=== PATIENT | male | born 1950 | race African-American/Black ===

== ENCOUNTER 2023-05-27 13:00 | Inpatient (IN) | payer MEDICAID, MEDICARE ==
[2023-05-27 14:16] LABS: #Eosinphils 0.1 thou/uL (0.0-0.7); #Monocytes 0.8 thou/uL (0.11-0.59); #Neutrophils 10.4 thou/uL (1.40-6.50); %Basophils 0.2 % (0.0-1.0); %Eosinophils 0.8 % (0.0-10.0); %Lymphocytes 7.1 % (21.0-51.0); %Monocytes 6.6 % (0.0-10.0); Hematocrit 15.6 % (42.0-52.0); Hemoglobin 4.6 g/dL (14.0-18.0); Mean Corpuscular HGB CONC 29.5 g/dL (32.0-36.0); Mean Corpuscular Volume 88.1 fl (78.0-98.0); Mean Platelet Volume 9.5 fL (7.4-10.4); Platelet Count 248 10x3/uL (130-400); RBC Distribution Width 17.8 % (11.5-14.5); Red Blood Cell (RBC) Count 1.77 mill/uL (4.70-6.10); White Blood Cell (WBC) Count 12.3 10x3/uL (4.8-10.8)
[2023-05-27 14:39] LABS: INR-International Normal Ratio 1.1; PTT 28.1 sec (22.9-36.1); Prothrombin Time 14.5 sec (12.0-14.7)
[2023-05-27 14:41] LABS: ALT (SGPT) 8 U/L (8-55); AST (SGOT) 14 U/L (5-34); Albumin 3.2 g/dL (3.4-4.8); Alkaline Phosphatase 55 U/L (40-110); Anion Gap 13 mmol/L (10-20); BUN (Urea Nitrogen) 63 mg/dL (8.4-25.7); Bilirubin, Total 0.4 mg/dL (0.2-1.2); Calc. Creatinine Clearance 0 mL/min (70-130); Calcium 8.1 mg/dL (7.8-10.44); Carbon Dioxide 21 mmol/L (23-31); Chloride 112 mmol/L (98-107); Estimated GFR 20; Globulin 2.7 g/dL (2.4-3.5); Glucose 110 mg/dL (83-110); Potassium 4.7 mmol/L (3.5-5.1); Protein, Total 5.9 g/dL (5.8-8.1); Sodium 141 mmol/L (136-145)
[2023-05-27] MEDS ORDERED: Pantoprazole 40 MG VIAL ONE (16:00)
[2023-05-27 16:26] LABS: Bacteria/HPF None Seen HPF (None Seen); Bilirubin Negative (Negative); Blood, Urine Negative (Negative); CAUTI Indications for Culture Pelvic or flank pain; Clarity Clear (Clear); Glucose, Urine (Dipstick) Normal (Negative); Ketone, Urine Negative (Negative); Leukocyte Negative Leu/uL (Negative); Nitrite Negative (Negative); Protein, Urine (Dipstick) 70 mg/dL (Neg-Trace); RBC/HPF None Seen HPF (0-3); Specific Gravity, Urine 1.014 (1.002-1.036); Squamous Epithelial None Seen HPF (0-3); Urobilinogen Normal mg/dL (Less than 2); WBC/HPF 0-3 HPF (0-3); pH, Urine 5.5 (5.0-9.0)
[2023-05-27 16:43] LABS: Urine Culture Reflex No No
[2023-05-27] MEDS ORDERED: Ondansetron ODT 4 MG TAB SL PRN (17:30)
[2023-05-27] MEDS ORDERED: Acetaminophen 325 MG TAB PO PRN ×2 (17:30→18:29)
[2023-05-27] MEDS ORDERED: Ondansetron PF 4 MG/2 ML Vial IVP PRN (17:30)
[2023-05-27] MEDS: Pantoprazole 40 MG VIAL IVP SCH (18:23)
[2023-05-27] MEDS ORDERED: Ondansetron ODT 4 MG TAB PO PRN (18:29)
[2023-05-27] MEDS ORDERED: Acetaminophen 650 MG Suppository PR PRN (18:29)
[2023-05-27] MEDS ORDERED: hydrALAZINE 20 MG/ML VIAL SLOW IVP SCH (18:30)
[2023-05-27] MEDS ORDERED: Amlodipine 10 MG TAB PO SCH (18:30)
[2023-05-27] MEDS ORDERED: hydrALAZINE 20 MG/ML VIAL SLOW IVP PRN (18:31)
[2023-05-27] MEDS ORDERED: Furosemide 40 MG (4 mL) VIAL SLOW IVP SCH (22:15)
[2023-05-27] MEDS: Sodium Chloride 0.9% 1,000 ML IV SCH ×2 (23:47→23:50)
[2023-05-28 00:02] LABS: Lactic Acid 0.8 mmol/L (0.5-2.2)
[2023-05-28 00:05] LABS: ALT (SGPT) 8 U/L (8-55); AST (SGOT) 16 U/L (5-34); Albumin 3.1 g/dL (3.4-4.8); Alkaline Phosphatase 52 U/L (40-110); Anion Gap 17 mmol/L (10-20); BUN (Urea Nitrogen) 65 mg/dL (8.4-25.7); Bilirubin, Total 0.7 mg/dL (0.2-1.2); Calc. Creatinine Clearance 34 mL/min (70-130); Carbon Dioxide 17 mmol/L (23-31); Chloride 114 mmol/L (98-107); Estimated GFR 20; Globulin 2.6 g/dL (2.4-3.5); Glucose 152 mg/dL (83-110); Potassium 4.8 mmol/L (3.5-5.1); Protein, Total 5.7 g/dL (5.8-8.1); Sodium 143 mmol/L (136-145)
[2023-05-28] MEDS: Labetalol HCl 100 MG/20 ML VIAL SLOW IVP PRN ×4 (00:25→22:14)
[2023-05-28] MEDS: hydrALAZINE 20 MG/ML VIAL SLOW IVP PRN ×3 (03:16→15:51)
[2023-05-28 04:01] LABS: #Neutrophils 16.1 thou/uL (1.40-6.50); %Basophils 0.1 % (0.0-1.0); %Lymphocytes 5.3 % (21.0-51.0); %Monocytes 5.5 % (0.0-10.0); %Neutrophils 88.7 % (42.0-75.0); Hematocrit 19.1 % (42.0-52.0); Hemoglobin 6.1 g/dL (14.0-18.0); Mean Corpuscular HGB CONC 31.9 g/dL (32.0-36.0); Mean Corpuscular Hemoglobin 27.5 pg (27.0-31.0); Mean Platelet Volume 10.7 fL (7.4-10.4); Platelet Count 284 10x3/uL (130-400); RBC Distribution Width 16.5 % (11.5-14.5); Red Blood Cell (RBC) Count 2.22 mill/uL (4.70-6.10); White Blood Cell (WBC) Count 18.1 10x3/uL (4.8-10.8)
[2023-05-28 04:24] LABS: ALT (SGPT) 9 U/L (8-55); AST (SGOT) 14 U/L (5-34); Albumin 3.3 g/dL (3.4-4.8); Alkaline Phosphatase 54 U/L (40-110); Anion Gap 17 mmol/L (10-20); BUN (Urea Nitrogen) 70 mg/dL (8.4-25.7); Bilirubin, Total 0.7 mg/dL (0.2-1.2); Calc. Creatinine Clearance 34 mL/min (70-130); Calcium 8.2 mg/dL (7.8-10.44); Carbon Dioxide 19 mmol/L (23-31); Chloride 114 mmol/L (98-107); Estimated GFR 20; Globulin 2.8 g/dL (2.4-3.5); Glucose 140 mg/dL (83-110); Potassium 4.5 mmol/L (3.5-5.1); Protein, Total 6.1 g/dL (5.8-8.1); Sodium 145 mmol/L (136-145)
[2023-05-28] MEDS: Sodium Chloride 0.9% 1,000 ML IV SCH ×3 (04:47→23:56)
[2023-05-28] MEDS: Pantoprazole 40 MG VIAL IVP SCH (09:04)
[2023-05-28] MEDS ORDERED: GoLYTELY 4,000 ml Bottle PO SCH (10:30)
[2023-05-28 11:21] LABS: Hematocrit 20.8 % (42.0-52.0); Hemoglobin 6.8 g/dL (14.0-18.0)
[2023-05-28 11:43] LABS: Glucose 132 mg/dL (83-110)
[2023-05-28] MEDS ORDERED: Etomidate 40 MG (20 mL) VIAL ONE (16:49)
[2023-05-28] MEDS ORDERED: Rocuronium Bromide 10 MG/ML (10ML VIAL) ONE ×2 (16:49→17:07)
[2023-05-28] MEDS ORDERED: Succinylcholine 200 MG/10 ml SYRINGE FS ONE ×2 (16:49→17:07)
[2023-05-28] MEDS ORDERED: Lidocaine 1% PF 5 ML VIAL ONE ×2 (16:49→17:07)
[2023-05-28] MEDS ORDERED: PHENYLEPHRINE-NS 100 MCG/ML 10 ML SYRINGE ONE ×2 (17:07→17:39)
[2023-05-28] MEDS ORDERED: Ondansetron PF 4 MG/2 ML Vial ONE ×2 (17:07→18:59)
[2023-05-28] MEDS ORDERED: SUGAMMADEX SODIUM 200 MG/2 ML VIAL ONE (18:59)
[2023-05-28 19:50] LABS: Hematocrit 25.4 % (42.0-52.0); Hemoglobin 8.5 g/dL (14.0-18.0)
[2023-05-29] MEDS: hydrALAZINE 20 MG/ML VIAL SLOW IVP PRN ×2 (00:17→22:45)
[2023-05-29] MEDS: Sodium Chloride 0.9% 1,000 ML IV SCH ×4 (03:18→21:07)
[2023-05-29 05:07] LABS: #Basophils 0.1 thou/uL (0.0-0.2); #Eosinphils 0.2 thou/uL (0.0-0.7); #Monocytes 1.1 thou/uL (0.11-0.59); #Neutrophils 9.7 thou/uL (1.40-6.50); %Basophils 0.4 % (0.0-1.0); %Eosinophils 1.7 % (0.0-10.0); %Lymphocytes 11.8 % (21.0-51.0); %Neutrophils 76.4 % (42.0-75.0); Hematocrit 22.7 % (42.0-52.0); Hemoglobin 7.6 g/dL (14.0-18.0); Mean Corpuscular HGB CONC 33.5 g/dL (32.0-36.0); Mean Corpuscular Hemoglobin 29.2 pg (27.0-31.0); Mean Corpuscular Volume 87.3 fl (78.0-98.0); Mean Platelet Volume 10.1 fL (7.4-10.4); Platelet Count 228 10x3/uL (130-400); RBC Distribution Width 17.1 % (11.5-14.5); White Blood Cell (WBC) Count 12.7 10x3/uL (4.8-10.8)
[2023-05-29 05:08] LABS: Hematocrit 22.8 % (42.0-52.0); Hemoglobin 7.5 g/dL (14.0-18.0)
[2023-05-29] MEDS: Labetalol HCl 100 MG/20 ML VIAL SLOW IVP PRN ×2 (05:23→21:07)
[2023-05-29 05:36] LABS: ALT (SGPT) 9 U/L (8-55); AST (SGOT) 14 U/L (5-34); Albumin 2.6 g/dL (3.4-4.8); Alkaline Phosphatase 53 U/L (40-110); Anion Gap 12 mmol/L (10-20); BUN (Urea Nitrogen) 66 mg/dL (8.4-25.7); Bilirubin, Total 0.6 mg/dL (0.2-1.2); Calc. Creatinine Clearance 30 mL/min (70-130); Calcium 7.3 mg/dL (7.8-10.44); Carbon Dioxide 22 mmol/L (23-31); Chloride 117 mmol/L (98-107); Estimated GFR 22; Globulin 2.4 g/dL (2.4-3.5); Glucose 82 mg/dL (83-110); Phosphorus 4.9 mg/dL (2.3-4.7); Potassium 3.6 mmol/L (3.5-5.1); Sodium 147 mmol/L (136-145)
[2023-05-29] MEDS ORDERED: Amlodipine 10 MG TAB PO SCH (09:30)
[2023-05-29] MEDS: Pantoprazole 40 MG VIAL IVP SCH (09:37)
[2023-05-29] MEDS: cloNIDine 0.1mg/24 Hour PATCH TD SCH (10:36)
[2023-05-29 10:55] LABS: Hematocrit 23.4 % (42.0-52.0); Hemoglobin 7.7 g/dL (14.0-18.0)
[2023-05-29 18:31] LABS: Hematocrit 25.2 % (42.0-52.0)
[2023-05-30] MEDS: Labetalol HCl 100 MG/20 ML VIAL SLOW IVP PRN (01:08)
[2023-05-30] MEDS: hydrALAZINE 20 MG/ML VIAL SLOW IVP PRN (02:19)
[2023-05-30] MEDS: Sodium Chloride 0.9% 1,000 ML IV SCH ×2 (04:11→11:51)
[2023-05-30 04:24] LABS: #Eosinphils 0.6 thou/uL (0.0-0.7); #Monocytes 1.2 thou/uL (0.11-0.59); #Neutrophils 8.7 thou/uL (1.40-6.50); %Basophils 0.3 % (0.0-1.0); %Eosinophils 4.6 % (0.0-10.0); %Lymphocytes 16.7 % (21.0-51.0); %Monocytes 9.4 % (0.0-10.0); %Neutrophils 68.4 % (42.0-75.0); Hematocrit 24.1 % (42.0-52.0); Hemoglobin 7.7 g/dL (14.0-18.0); Mean Corpuscular Hemoglobin 28.8 pg (27.0-31.0); Platelet Count 241 10x3/uL (130-400); RBC Distribution Width 17.8 % (11.5-14.5); Red Blood Cell (RBC) Count 2.67 mill/uL (4.70-6.10); White Blood Cell (WBC) Count 12.7 10x3/uL (4.8-10.8)
[2023-05-30 04:49] LABS: ALT (SGPT) 9 U/L (8-55); AST (SGOT) 16 U/L (5-34); Albumin 2.6 g/dL (3.4-4.8); Alkaline Phosphatase 54 U/L (40-110); Anion Gap 11 mmol/L (10-20); BUN (Urea Nitrogen) 42 mg/dL (8.4-25.7); Bilirubin, Total 0.5 mg/dL (0.2-1.2); Calc. Creatinine Clearance 37 mL/min (70-130); Calcium 7.5 mg/dL (7.8-10.44); Carbon Dioxide 20 mmol/L (23-31); Chloride 116 mmol/L (98-107); Estimated GFR 28; Globulin 2.5 g/dL (2.4-3.5); Glucose 81 mg/dL (83-110); Potassium 3.8 mmol/L (3.5-5.1); Protein, Total 5.1 g/dL (5.8-8.1); Sodium 143 mmol/L (136-145)
[2023-05-30 05:05] LABS: Mean Corpuscular Volume 90.3 fl (78.0-98.0)
[2023-05-30] MEDS: Amlodipine 10 MG TAB PO SCH (08:45)
[2023-05-30] MEDS: Pantoprazole 40 MG VIAL IVP SCH (08:45)
[2023-05-30] MEDS ORDERED: FLU VACC QS2023(65UP)/MF59C/PF 60 MCG/0.5 ML SYRINGE IM ONE (09:00)
[2023-05-30] MEDS ORDERED: GoLYTELY 4,000 ml Bottle PO SCH (11:00)
[2023-05-30] MEDS ORDERED: hydrALAZINE 25 MG TAB PO SCH (16:30)
[2023-05-30] MEDS: hydrALAZINE 25 MG TAB PO SCH (21:02)
[2023-05-30] MEDS: Carvedilol 25 MG TAB PO SCH (21:04)
[2023-05-31 05:17] LABS: #Eosinphils 0.2 thou/uL (0.0-0.7); #Monocytes 0.9 thou/uL (0.11-0.59); #Neutrophils 6.8 thou/uL (1.40-6.50); %Basophils 0.2 % (0.0-1.0); %Eosinophils 1.6 % (0.0-10.0); %Lymphocytes 13.2 % (21.0-51.0); %Monocytes 9.9 % (0.0-10.0); %Neutrophils 74.7 % (42.0-75.0); Hematocrit 21.4 % (42.0-52.0); Hemoglobin 6.9 g/dL (14.0-18.0); Mean Corpuscular HGB CONC 32.2 g/dL (32.0-36.0); Mean Corpuscular Hemoglobin 29.1 pg (27.0-31.0); Mean Corpuscular Volume 90.3 fl (78.0-98.0); Mean Platelet Volume 10.4 fL (7.4-10.4); Platelet Count 205 10x3/uL (130-400); RBC Distribution Width 18.1 % (11.5-14.5); Red Blood Cell (RBC) Count 2.37 mill/uL (4.70-6.10); White Blood Cell (WBC) Count 9.1 10x3/uL (4.8-10.8)
[2023-05-31 05:45] LABS: ALT (SGPT) 11 U/L (8-55); AST (SGOT) 18 U/L (5-34); Albumin 2.5 g/dL (3.4-4.8); Alkaline Phosphatase 49 U/L (40-110); Anion Gap 12 mmol/L (10-20); BUN (Urea Nitrogen) 29 mg/dL (8.4-25.7); Bilirubin, Total 0.5 mg/dL (0.2-1.2); Calc. Creatinine Clearance 43 mL/min (70-130); Calcium 7.5 mg/dL (7.8-10.44); Carbon Dioxide 21 mmol/L (23-31); Chloride 113 mmol/L (98-107); Estimated GFR 31; Globulin 2.5 g/dL (2.4-3.5); Glucose 101 mg/dL (83-110); Iron 11 ug/dL (65-175); Potassium 3.7 mmol/L (3.5-5.1); Sodium 142 mmol/L (136-145)
[2023-05-31] MEDS: Sodium Chloride 0.9% 1,000 ML IV SCH (06:19)
[2023-05-31] MEDS: Carvedilol 25 MG TAB PO SCH ×2 (08:42→21:29)
[2023-05-31] MEDS: Amlodipine 10 MG TAB PO SCH (08:43)
[2023-05-31] MEDS: hydrALAZINE 25 MG TAB PO SCH ×3 (08:43→21:29)
[2023-05-31] MEDS: Pantoprazole 40 MG VIAL IVP SCH (08:43)
[2023-05-31] MEDS ORDERED: hydrALAZINE 25 MG TAB PO SCH (09:00)
[2023-05-31] MEDS ORDERED: GoLYTELY 4,000 ml Bottle PO SCH (09:45)
[2023-05-31 17:08] LABS: Hematocrit 26.1 % (42.0-52.0); Hemoglobin 8.6 g/dL (14.0-18.0)
[2023-05-31] MEDS ORDERED: Bisacodyl 10 MG SUPP PR SCH ×2 (20:30→21:00)
[2023-06-01 06:21] LABS: Hematocrit 26.3 % (42.0-52.0); Hemoglobin 8.3 g/dL (14.0-18.0); Mean Corpuscular HGB CONC 31.6 g/dL (32.0-36.0); Mean Corpuscular Hemoglobin 29.2 pg (27.0-31.0); Mean Corpuscular Volume 92.6 fl (78.0-98.0); Mean Platelet Volume 10.2 fL (7.4-10.4); Platelet Count 220 10x3/uL (130-400); RBC Distribution Width 17.4 % (11.5-14.5); Red Blood Cell (RBC) Count 2.84 mill/uL (4.70-6.10); White Blood Cell (WBC) Count 8.7 10x3/uL (4.8-10.8)
[2023-06-01 06:45] LABS: Anion Gap 15 mmol/L (10-20); BUN (Urea Nitrogen) 26 mg/dL (8.4-25.7); Calc. Creatinine Clearance 48 mL/min (70-130); Calcium 7.8 mg/dL (7.8-10.44); Carbon Dioxide 20 mmol/L (23-31); Chloride 110 mmol/L (98-107); Estimated GFR 34; Glucose 81 mg/dL (83-110); Potassium 3.5 mmol/L (3.5-5.1); Sodium 141 mmol/L (136-145)
[2023-06-01] MEDS: Sodium Chloride 0.9% 1,000 ML IV SCH (06:50)
[2023-06-01] MEDS ORDERED: Bisacodyl 10 MG SUPP PR SCH (08:00)
[2023-06-01] MEDS: Carvedilol 25 MG TAB PO SCH ×2 (08:38→20:29)
[2023-06-01] MEDS: Amlodipine 10 MG TAB PO SCH (08:38)
[2023-06-01] MEDS: Pantoprazole 40 MG VIAL IVP SCH (08:38)
[2023-06-01] MEDS: hydrALAZINE 25 MG TAB PO SCH ×3 (08:38→20:29)
[2023-06-01] MEDS ORDERED: Lidocaine 1% PF 5 ML VIAL ONE ×2 (10:36→10:51)
[2023-06-01] MEDS ORDERED: PROPOFOL 20 ML ONE ×4 (10:36→11:56)
[2023-06-01] MEDS ORDERED: PROPOFOL 200 MG/20 ML VIAL ONE (10:51)
[2023-06-01] MEDS ORDERED: PHENYLEPHRINE-NS 100 MCG/ML 10 ML SYRINGE ONE ×3 (10:51→12:17)
[2023-06-01] MEDS ORDERED: Promethazine HCl 25 MG/ML VIAL IM PRN (12:52)
[2023-06-01] MEDS ORDERED: Ondansetron HCl/PF 4 MG/2 ML Vial IVP PRN (12:52)
[2023-06-01] MEDS: Labetalol HCl 100 MG/20 ML VIAL SLOW IVP PRN (16:15)
[2023-06-02 05:27] LABS: Hematocrit 26.2 % (42.0-52.0); Hemoglobin 8.5 g/dL (14.0-18.0); Mean Corpuscular HGB CONC 32.4 g/dL (32.0-36.0); Mean Corpuscular Hemoglobin 29.4 pg (27.0-31.0); Mean Corpuscular Volume 90.7 fl (78.0-98.0); Mean Platelet Volume 10.1 fL (7.4-10.4); Platelet Count 229 10x3/uL (130-400); RBC Distribution Width 17.3 % (11.5-14.5); Red Blood Cell (RBC) Count 2.89 mill/uL (4.70-6.10); White Blood Cell (WBC) Count 8.7 10x3/uL (4.8-10.8)
[2023-06-02] MEDS: Labetalol HCl 100 MG/20 ML VIAL SLOW IVP PRN (06:23)
[2023-06-02] MEDS: Sodium Chloride 0.9% 1,000 ML IV SCH ×2 (06:27→17:34)
[2023-06-02 08:26] LABS: Anion Gap 13 mmol/L (10-20); BUN (Urea Nitrogen) 26 mg/dL (8.4-25.7); Calc. Creatinine Clearance 46 mL/min (70-130); Calcium 7.8 mg/dL (7.8-10.44); Carbon Dioxide 21 mmol/L (23-31); Chloride 112 mmol/L (98-107); Estimated GFR 32; Glucose 78 mg/dL (83-110); Potassium 3.7 mmol/L (3.5-5.1); Sodium 142 mmol/L (136-145)
[2023-06-02] MEDS: hydrALAZINE 25 MG TAB PO SCH ×3 (09:41→20:38)
[2023-06-02] MEDS: Carvedilol 25 MG TAB PO SCH ×2 (09:42→20:38)
[2023-06-02] MEDS: Amlodipine 10 MG TAB PO SCH (09:42)
[2023-06-02] MEDS: Pantoprazole 40 MG VIAL IVP SCH (09:43)
[2023-06-02] MEDS: Polyethylene Glycol 3350 17 GM Packet PO SCH (20:37)
[2023-06-03 06:20] LABS: #Eosinphils 0.5 thou/uL (0.0-0.7); #Monocytes 0.8 thou/uL (0.11-0.59); #Neutrophils 5.1 thou/uL (1.40-6.50); %Basophils 0.1 % (0.0-1.0); %Eosinophils 6.3 % (0.0-10.0); %Lymphocytes 21.1 % (21.0-51.0); %Monocytes 9.9 % (0.0-10.0); %Neutrophils 62.2 % (42.0-75.0); Hematocrit 24.5 % (42.0-52.0); Hemoglobin 7.7 g/dL (14.0-18.0); Mean Corpuscular HGB CONC 31.4 g/dL (32.0-36.0); Mean Corpuscular Hemoglobin 29.2 pg (27.0-31.0); Mean Corpuscular Volume 92.8 fl (78.0-98.0); Mean Platelet Volume 10.6 fL (7.4-10.4); Platelet Count 232 10x3/uL (130-400); RBC Distribution Width 17.3 % (11.5-14.5); Red Blood Cell (RBC) Count 2.64 mill/uL (4.70-6.10); White Blood Cell (WBC) Count 8.2 10x3/uL (4.8-10.8)
[2023-06-03 06:50] LABS: Anion Gap 11 mmol/L (10-20); BUN (Urea Nitrogen) 27 mg/dL (8.4-25.7); Calc. Creatinine Clearance 41 mL/min (70-130); Calcium 7.8 mg/dL (7.8-10.44); Carbon Dioxide 21 mmol/L (23-31); Chloride 112 mmol/L (98-107); Estimated GFR 28; Glucose 96 mg/dL (83-110); Potassium 3.6 mmol/L (3.5-5.1); Sodium 140 mmol/L (136-145)
[2023-06-03] MEDS: Polyethylene Glycol 3350 17 GM Packet PO SCH ×2 (08:37→20:23)
[2023-06-03] MEDS: Amlodipine 10 MG TAB PO SCH (08:37)
[2023-06-03] MEDS: Carvedilol 25 MG TAB PO SCH ×2 (08:37→20:22)
[2023-06-03] MEDS: hydrALAZINE 25 MG TAB PO SCH ×3 (08:38→20:22)
[2023-06-03 13:29] VITALS: BMI 36.9
[2023-06-03] MEDS: Lactated Ringer's 1,000 ML IV SCH (17:22)
[2023-06-03] MEDS: Sodium Chloride 0.9% 1,000 ML IV SCH (17:23)
[2023-06-04] MEDS: Labetalol HCl 100 MG/20 ML VIAL SLOW IVP PRN (05:35)
[2023-06-04 07:10] LABS: #Eosinphils 0.3 thou/uL (0.0-0.7); #Monocytes 0.8 thou/uL (0.11-0.59); #Neutrophils 5.1 thou/uL (1.40-6.50); %Basophils 0.1 % (0.0-1.0); %Eosinophils 4.2 % (0.0-10.0); %Lymphocytes 21.3 % (21.0-51.0); %Monocytes 10.5 % (0.0-10.0); %Neutrophils 63.7 % (42.0-75.0); Hematocrit 23.3 % (42.0-52.0); Hemoglobin 7.3 g/dL (14.0-18.0); Mean Corpuscular HGB CONC 31.3 g/dL (32.0-36.0); Mean Corpuscular Hemoglobin 29.2 pg (27.0-31.0); Mean Corpuscular Volume 93.2 fl (78.0-98.0); Mean Platelet Volume 10.8 fL (7.4-10.4); Platelet Count 212 10x3/uL (130-400); RBC Distribution Width 17.2 % (11.5-14.5)
[2023-06-04 07:38] LABS: Anion Gap 10 mmol/L (10-20); BUN (Urea Nitrogen) 28 mg/dL (8.4-25.7); Calc. Creatinine Clearance 42 mL/min (70-130); Carbon Dioxide 22 mmol/L (23-31); Chloride 112 mmol/L (98-107); Estimated GFR 29; Glucose 87 mg/dL (83-110); Sodium 140 mmol/L (136-145)
[2023-06-04] MEDS: Amlodipine 10 MG TAB PO SCH (09:08)
[2023-06-04] MEDS: hydrALAZINE 25 MG TAB PO SCH ×3 (09:08→21:40)
[2023-06-04] MEDS: Carvedilol 25 MG TAB PO SCH ×2 (09:09→21:40)
[2023-06-04] MEDS: Polyethylene Glycol 3350 17 GM Packet PO SCH ×2 (09:09→21:41)
[2023-06-04] MEDS: Lactated Ringer's 1,000 ML IV SCH (13:44)
[2023-06-05] MEDS: Labetalol HCl 100 MG/20 ML VIAL SLOW IVP PRN (05:37)
[2023-06-05] MEDS: NIFEdipine XL 90 MG ER.TAB PO SCH (08:54)
[2023-06-05] MEDS: Polyethylene Glycol 3350 17 GM Packet PO SCH ×2 (08:54→20:33)
[2023-06-05] MEDS: hydrALAZINE 25 MG TAB PO SCH ×3 (08:54→20:33)
[2023-06-05] MEDS: Carvedilol 25 MG TAB PO SCH ×2 (08:54→20:33)
[2023-06-05 10:08] LABS: Anion Gap 13 mmol/L (10-20); BUN (Urea Nitrogen) 31 mg/dL (8.4-25.7); Calc. Creatinine Clearance 37 mL/min (70-130); Calcium 8.4 mg/dL (7.8-10.44); Carbon Dioxide 20 mmol/L (23-31); Chloride 111 mmol/L (98-107); Estimated GFR 25; Glucose 137 mg/dL (83-110); Potassium 4.5 mmol/L (3.5-5.1); Sodium 139 mmol/L (136-145)
[2023-06-05] MEDS ORDERED: NIFEdipine XL 30 MG ER.TAB PO SCH (10:45)
[2023-06-05 12:42] LABS: #Eosinphils 0.3 thou/uL (0.0-0.7); #Monocytes 0.9 thou/uL (0.11-0.59); #Neutrophils 6.1 thou/uL (1.40-6.50); %Basophils 0.2 % (0.0-1.0); %Eosinophils 3.8 % (0.0-10.0); %Lymphocytes 13.8 % (21.0-51.0); %Monocytes 10.7 % (0.0-10.0); %Neutrophils 71.3 % (42.0-75.0); Hemoglobin 7.5 g/dL (14.0-18.0); Mean Corpuscular HGB CONC 31.3 g/dL (32.0-36.0); Mean Corpuscular Hemoglobin 29.5 pg (27.0-31.0); Mean Corpuscular Volume 94.5 fl (78.0-98.0); Mean Platelet Volume 9.9 fL (7.4-10.4); Platelet Count 202 10x3/uL (130-400); Red Blood Cell (RBC) Count 2.54 mill/uL (4.70-6.10); White Blood Cell (WBC) Count 8.6 10x3/uL (4.8-10.8)
[2023-06-05] MEDS: cloNIDine 0.1mg/24 Hour PATCH TD SCH (15:52)
[2023-06-05] MEDS: Ondansetron PF 4 MG/2 ML Vial IVP PRN (23:37)
[2023-06-06] MEDS: Ondansetron PF 4 MG/2 ML Vial IVP PRN ×2 (05:09→11:36)
[2023-06-06] MEDS: hydrALAZINE 25 MG TAB PO SCH ×3 (08:23→21:17)
[2023-06-06] MEDS: Polyethylene Glycol 3350 17 GM Packet PO SCH ×2 (08:23→21:08)
[2023-06-06] MEDS: Carvedilol 25 MG TAB PO SCH ×2 (08:23→21:17)
[2023-06-06] MEDS: NIFEdipine XL 90 MG ER.TAB PO SCH (08:23)
[2023-06-06] MEDS ORDERED: Sodium Chloride 0.9% 1,000 ML IV SCH (09:30)
[2023-06-06 10:18] LABS: Anion Gap 15 mmol/L (10-20); BUN (Urea Nitrogen) 39 mg/dL (8.4-25.7); Calc. Creatinine Clearance 32 mL/min (70-130); Calcium 8.5 mg/dL (7.8-10.44); Carbon Dioxide 17 mmol/L (23-31); Chloride 111 mmol/L (98-107); Estimated GFR 21; Glucose 107 mg/dL (83-110); Potassium 4.8 mmol/L (3.5-5.1); Sodium 138 mmol/L (136-145)
[2023-06-06 11:30] LABS: Albumin 3.1 g/dL (3.4-4.8)
[2023-06-06 11:43] LABS: Creatinine, Urine 138.16 mg/dL (63-166)
[2023-06-06 16:41] LABS: #Monocytes 0.8 thou/uL (0.11-0.59); #Neutrophils 10.3 thou/uL (1.40-6.50); %Basophils 0.2 % (0.0-1.0); %Eosinophils 0.3 % (0.0-10.0); %Lymphocytes 6.6 % (21.0-51.0); %Neutrophils 85.6 % (42.0-75.0); Hematocrit 27.8 % (42.0-52.0); Hemoglobin 8.6 g/dL (14.0-18.0); Mean Corpuscular HGB CONC 30.9 g/dL (32.0-36.0); Mean Corpuscular Hemoglobin 29.6 pg (27.0-31.0); Mean Corpuscular Volume 95.5 fl (78.0-98.0); Mean Platelet Volume 10.7 fL (7.4-10.4); Platelet Count 253 10x3/uL (130-400); Red Blood Cell (RBC) Count 2.91 mill/uL (4.70-6.10); White Blood Cell (WBC) Count 12.1 10x3/uL (4.8-10.8)
[2023-06-06] MEDS ORDERED: Albumin 25% 25 GM (100 mL) BOT IVPB SCH (19:15)
[2023-06-07] MEDS: Albumin 25% 25 GM (100 mL) BOT IVPB SCH ×4 (00:13→18:25)
[2023-06-07 07:36] LABS: #Neutrophils 9.8 thou/uL (1.40-6.50); %Basophils 0.2 % (0.0-1.0); %Eosinophils 0.1 % (0.0-10.0); %Lymphocytes 7.2 % (21.0-51.0); %Monocytes 8.6 % (0.0-10.0); %Neutrophils 83.7 % (42.0-75.0); Hematocrit 27.6 % (42.0-52.0); Hemoglobin 8.5 g/dL (14.0-18.0); Mean Corpuscular HGB CONC 30.8 g/dL (32.0-36.0); Mean Corpuscular Volume 94.2 fl (78.0-98.0); Mean Platelet Volume 10.6 fL (7.4-10.4); Platelet Count 251 10x3/uL (130-400); RBC Distribution Width 16.9 % (11.5-14.5); Red Blood Cell (RBC) Count 2.93 mill/uL (4.70-6.10); White Blood Cell (WBC) Count 11.7 10x3/uL (4.8-10.8)
[2023-06-07 08:03] LABS: Iron 15 ug/dL (65-175); Iron Binding Capacity, Total 234 mcg/dL (261-462)
[2023-06-07 08:04] LABS: Anion Gap 17 mmol/L (10-20); BUN (Urea Nitrogen) 45 mg/dL (8.4-25.7); Calc. Creatinine Clearance 31 mL/min (70-130); Calcium 8.6 mg/dL (7.8-10.44); Carbon Dioxide 17 mmol/L (23-31); Chloride 111 mmol/L (98-107); Estimated GFR 20; Glucose 97 mg/dL (83-110); Potassium 4.5 mmol/L (3.5-5.1); Sodium 140 mmol/L (136-145)
[2023-06-07] MEDS: hydrALAZINE 25 MG TAB PO SCH ×3 (08:29→20:28)
[2023-06-07] MEDS: NIFEdipine XL 90 MG ER.TAB PO SCH (08:30)
[2023-06-07] MEDS: Polyethylene Glycol 3350 17 GM Packet PO SCH ×2 (08:30→20:17)
[2023-06-07] MEDS ORDERED: Sodium Bicarbonate 150 MEQ in Dextrose 5% in Water 1,000 ML IV SCH (08:30)
[2023-06-07] MEDS: Carvedilol 25 MG TAB PO SCH ×2 (08:30→20:28)
[2023-06-07] MEDS ORDERED: EPOETIN ALFA-EPBX 10,000 UNITS/ML VIAL SC SCH (09:00)
[2023-06-07] MEDS: Iron, Sodium Ferric Gluconate 250 MG in Sodium Chloride 0.9% 250 ML 250 ML IVPB SCH (15:09)
[2023-06-07] MEDS: Sodium Bicarbonate 150 MEQ in Dextrose 5% in Water 1,000 ML IV SCH (17:08)
[2023-06-08] MEDS: Iron, Sodium Ferric Gluconate 250 MG in Sodium Chloride 0.9% 250 ML 250 ML IVPB SCH (08:36)
[2023-06-08 08:43] LABS: #Monocytes 1.3 thou/uL (0.11-0.59); #Neutrophils 9.3 thou/uL (1.40-6.50); %Basophils 0.1 % (0.0-1.0); %Eosinophils 0.1 % (0.0-10.0); %Lymphocytes 7.4 % (21.0-51.0); %Neutrophils 81.1 % (42.0-75.0); Hematocrit 26.1 % (42.0-52.0); Hemoglobin 8.2 g/dL (14.0-18.0); Mean Corpuscular HGB CONC 31.4 g/dL (32.0-36.0); Mean Corpuscular Hemoglobin 29.3 pg (27.0-31.0); Mean Corpuscular Volume 93.2 fl (78.0-98.0); Platelet Count 280 10x3/uL (130-400); RBC Distribution Width 16.7 % (11.5-14.5); White Blood Cell (WBC) Count 11.5 10x3/uL (4.8-10.8)
[2023-06-08] MEDS: Carvedilol 25 MG TAB PO SCH ×2 (08:43→20:42)
[2023-06-08] MEDS: hydrALAZINE 25 MG TAB PO SCH ×3 (08:44→20:43)
[2023-06-08] MEDS: Polyethylene Glycol 3350 17 GM Packet PO SCH ×2 (08:44→20:44)
[2023-06-08] MEDS: NIFEdipine XL 90 MG ER.TAB PO SCH (08:44)
[2023-06-08 09:14] LABS: Anion Gap 15 mmol/L (10-20); BUN (Urea Nitrogen) 55 mg/dL (8.4-25.7); Calc. Creatinine Clearance 31 mL/min (70-130); Calcium 8.5 mg/dL (7.8-10.44); Carbon Dioxide 22 mmol/L (23-31); Chloride 108 mmol/L (98-107); Estimated GFR 20; Glucose 113 mg/dL (83-110); Potassium 4.1 mmol/L (3.5-5.1); Sodium 141 mmol/L (136-145)
[2023-06-08 13:08] LABS: Anion Gap 15 mmol/L (10-20); BUN (Urea Nitrogen) 55 mg/dL (8.4-25.7); Calc. Creatinine Clearance 32 mL/min (70-130); Calcium 8.2 mg/dL (7.8-10.44); Carbon Dioxide 21 mmol/L (23-31); Chloride 108 mmol/L (98-107); Estimated GFR 20; Glucose 104 mg/dL (83-110); Sodium 140 mmol/L (136-145)
[2023-06-08] MEDS: Sodium Bicarbonate 150 MEQ in Dextrose 5% in Water 1,000 ML IV SCH ×2 (14:45→20:40)
[2023-06-08] MEDS: Albumin 25% 25 GM (100 mL) BOT IVPB SCH ×2 (14:46→20:44)
[2023-06-08] MEDS: Senokot S 8.6-50 MG TAB PO SCH (20:42)
[2023-06-09] MEDS: Albumin 25% 25 GM (100 mL) BOT IVPB SCH ×2 (02:58→08:53)
[2023-06-09 06:30] LABS: #Monocytes 1.4 thou/uL (0.11-0.59); #Neutrophils 9.1 thou/uL (1.40-6.50); %Basophils 0.1 % (0.0-1.0); %Eosinophils 0.3 % (0.0-10.0); %Lymphocytes 8.4 % (21.0-51.0); %Monocytes 11.7 % (0.0-10.0); Hematocrit 23.6 % (42.0-52.0); Hemoglobin 7.6 g/dL (14.0-18.0); Mean Corpuscular HGB CONC 32.2 g/dL (32.0-36.0); Mean Corpuscular Hemoglobin 29.5 pg (27.0-31.0); Mean Corpuscular Volume 91.5 fl (78.0-98.0); Mean Platelet Volume 11.3 fL (7.4-10.4); Platelet Count 261 10x3/uL (130-400); RBC Distribution Width 16.7 % (11.5-14.5); Red Blood Cell (RBC) Count 2.58 mill/uL (4.70-6.10); White Blood Cell (WBC) Count 11.5 10x3/uL (4.8-10.8)
[2023-06-09 06:54] LABS: Anion Gap 16 mmol/L (10-20); BUN (Urea Nitrogen) 57 mg/dL (8.4-25.7); Calc. Creatinine Clearance 30 mL/min (70-130); Calcium 8.2 mg/dL (7.8-10.44); Carbon Dioxide 24 mmol/L (23-31); Chloride 104 mmol/L (98-107); Estimated GFR 20; Glucose 114 mg/dL (83-110); Potassium 3.8 mmol/L (3.5-5.1); Sodium 140 mmol/L (136-145)
[2023-06-09] MEDS: hydrALAZINE 25 MG TAB PO SCH ×3 (08:52→23:23)
[2023-06-09] MEDS: Senokot S 8.6-50 MG TAB PO SCH ×2 (08:53→23:24)
[2023-06-09] MEDS: Polyethylene Glycol 3350 17 GM Packet PO SCH ×2 (08:53→23:24)
[2023-06-09] MEDS: Carvedilol 25 MG TAB PO SCH ×2 (08:53→23:23)
[2023-06-09] MEDS: NIFEdipine XL 90 MG ER.TAB PO SCH (08:53)
[2023-06-09] MEDS: Iron, Sodium Ferric Gluconate 250 MG in Sodium Chloride 0.9% 250 ML 250 ML IVPB SCH (08:54)
[2023-06-09] MEDS ORDERED: Fleet Saline Enema 133 ML BOT PR SCH (10:15)
[2023-06-09 12:46] VITALS: BP 153/65; TEMP 98.8
[2023-06-09] MEDS ORDERED: PREFILLED IVP SCH (14:30)
[2023-06-09] MEDS ORDERED: NEOSTIGMINE IVP SCH (14:30)
[2023-06-09] MEDS ORDERED: Atropine Sulfate 1 mg/10 ml Syringe ONE ×2 (17:20→17:52)
[2023-06-09] MEDS ORDERED: EPINEPHrine 1 MG/10 ML Abboject SYRINGE ONE (17:52)
[2023-06-09] MEDS ORDERED: NOREPINEPHRINE 8 MG/250 ML-D5W 250 ML ONE (17:57)
[2023-06-09] MEDS ORDERED: Propofol 1,000 MG/100 ML VIAL IV ONE (18:04)
== END 2023-06-09 22:00 | disposition expired | DRG 377 ==
LOC: ERS 13:00 → 2NO 16:28 → IMCU/EMU 22:02 → T4-B 06-02 19:00 → CCU 06-09 17:23
PROVIDERS: ADMIT Hospitalist; ATTEND Internal Medicine
PROC: 30233N1 Transfusion of Nonautologous Red Blood Cells into Peripheral Vein, Percutaneous Approach (ICD-10-PCS; 2023-05-27)
PROC: 0D9P80Z Drainage of Rectum with Drainage Device, Via Natural or Artificial Opening Endoscopic (ICD-10-PCS; 2023-05-28)
PROC: 30233J1 Transfusion of Nonautologous Serum Albumin into Peripheral Vein, Percutaneous Approach (ICD-10-PCS; 2023-06-06)
PROC: 0DJ08ZZ Inspection of Upper Intestinal Tract, Via Natural or Artificial Opening Endoscopic (ICD-10-PCS; principal; 2023-06-08)
PROC: 3E033XZ Introduction of Vasopressor into Peripheral Vein, Percutaneous Approach (ICD-10-PCS; 2023-06-09)
PROC: 5A12012 Performance of Cardiac Output, Single, Manual (ICD-10-PCS; 2023-06-09)
DX: K92.2 Gastrointestinal hemorrhage, unspecified (principal); I50.33 Acute on chronic diastolic (congestive) heart failure; N17.9 Acute kidney failure, unspecified; K56.7 Ileus, unspecified; N18.4 Chronic kidney disease, stage 4 (severe); D62 Acute posthemorrhagic anemia; I13.0 Hypertensive heart and chronic kidney disease with heart failure and stage 1 through stage 4 chronic kidney disease, or unspecified chronic kidney disease; K59.39 Other megacolon; E87.21 Acute metabolic acidosis; Q43.8 Other specified congenital malformations of intestine; K59.81 Ogilvie syndrome; E11.22 Type 2 diabetes mellitus with diabetic chronic kidney disease; R00.0 Tachycardia, unspecified; R55 Syncope and collapse; K63.89 Other specified diseases of intestine; K59.89 Other specified functional intestinal disorders; E66.9 Obesity, unspecified; E88.09 Other disorders of plasma-protein metabolism, not elsewhere classified; I87.2 Venous insufficiency (chronic) (peripheral); D63.1 Anemia in chronic kidney disease; D50.9 Iron deficiency anemia, unspecified; K59.00 Constipation, unspecified; D72.829 Elevated white blood cell count, unspecified; R00.1 Bradycardia, unspecified; R06.81 Apnea, not elsewhere classified; R09.02 Hypoxemia; I08.1 Rheumatic disorders of both mitral and tricuspid valves; I46.9 Cardiac arrest, cause unspecified; Z79.899 Other long term (current) drug therapy; Z98.890 Other specified postprocedural states; Z87.19 Personal history of other diseases of the digestive system; Z68.36 Body mass index [BMI] 36.0-36.9, adult; K74.69 Other cirrhosis of liver
CPT/HCPCS: 36415; 36416; 36430; 71045; 74018; 74176; 76700; 80048; 80053; 81001; 82570; 82607; 82728; 83540; 83550; 83605; 83735; 83880; 84100; 84156; 84300; 85014; 85018; 85025; 85027; 85046; 85610; 85730; 86850; 86900; 86901; 87324; 87449; 93005; 93010; 93306; 96374; C9113; J0171; J0360; J0461; J1940; J2405; J2704; J2710; J2916; J7050; J7070; J7120; P9016; P9047; Q0162; Q5106